=== PATIENT | female | born 1975 | race Caucasian/White ===

== ENCOUNTER 2022-11-13 09:25 | Outpatient (OUT) | payer SELFPAY ==
--- NOTE | 2022-11-13 09:34 | MM_ITS ---
Patient: KIAN CROWLEY Exam Date: 11/13/2022 : 1975 Gender:F Ordering : Non-Staff Physician Admission #: [id number] Family : DR. RASTA BYRD D.O. Order #: [id number] CLICK HERE TO VIEW EXAM RADIOLOGY REPORT PROCEDURE: MM TOMOSYNTHESIS SCREENING BI COMPARISON: MG MAMM SCREEN 3D SALMA CAD, 10/12/2021. MG MAMM SCREEN 3D SALMA CAD, 10/11/2020. MG MAMM SCREEN SALMA W CAD, 06/18/2019. MG MAMM SALMA SCRN W CAD DIG, 06/08/2015. INDICATIONS: Screening Calculator Name NCI Breast Cancer Risk Assessment Tool 5 Year Breast Cancer Risk 0.90% Lifetime Breast Cancer Risk 9.30% Personal Breast Cancer No Personal Ovarian Cancer No Treatments None Family Cancers Father with prostate cancer at age ~57. LOCATION: [facility] BREAST COMPOSITION: Scattered areas fibroglandular density. FINDINGS: DIAGNOSTIC CATEGORY 1--NEGATIVE. RIGHT BREAST: No significant suspicious finding. No significant change has occurred. LEFT BREAST: No significant suspicious finding. No significant change has occurred. RECOMMENDATIONS: ROUTINE MAMMOGRAM AND CLINICAL EVALUATION IN 12 MONTHS. PLEASE NOTE: A NORMAL MAMMOGRAM DOES NOT EXCLUDE THE POSSIBILITY OF BREAST CANCER. A CLINICALLY SUSPICIOUS PALPABLE LUMP SHOULD BE BIOPSIED. Dictated by: Agapito Carl M.D. on 11/14/2022 at 09:15 Approved by: Agapito Carl M.D. on 11/14/2022 at 09:18
== END 2022-11-13 09:26 | disposition home or self-care (01) ==
LOC: MAMMO 09:27
PROVIDERS: PCP Family Medicine
DX: Z12.31 Encounter for screening mammogram for malignant neoplasm of breast (principal); Z80.8 Family history of malignant neoplasm of other organs or systems
CPT/HCPCS: 77063; 77067

== ENCOUNTER 2023-01-15 09:15 | Outpatient (OUT) | payer SELFPAY ==
[2023-01-15 09:38] LABS: Basophils Absolute Auto 0.1 10^3/uL (0.0-0.1); Basophils Percent Auto 1.1 % (0.2-2.0); Eosinophils Absolute Auto 0.2 10^3/uL (0.0-0.7); Eosinophils Percent Auto 2.8 % (0.9-7.0); Hematocrit 35.3 % (36.0-48.0); Immature Granulocytes Abs Auto 0.01 10^3/uL (0.00-0.03); Immature Granulocytes Pct Auto 0.2 % (0.0-0.5); Lymphocytes Absolute Auto 1.6 10^3/uL (1.2-3.8); Lymphocytes Percent Auto 30.3 % (20.5-60.0); Mean Corpuscular Hemoglobin 29.3 pg (26.7-34.0); Mean Corpuscular Volume 86.1 fL (81.0-99.0); Mean Platelet Volume 11.7 fL (9.5-13.5); Monocytes Absolute Auto 0.3 10^3/uL (0.3-0.8); Monocytes Percent Auto 6.2 % (1.7-12.0); Neutrophils Absolute Auto 3.2 10^3/uL (1.4-6.5); Neutrophils Percent Auto 59.4 % (43.0-75.0); Platelet Count 268 10^3/uL (150-450); Red Cell Distribution Width 12.5 % (11.0-15.0); White Blood Count 5.3 10^3/uL (4.0-11.0)
[2023-01-15 10:29] LABS: Alanine Aminotransferase 30 U/L (14-59); Albumin Globulin Ratio 1.3; Alkaline Phosphatase 41 U/L (46-116); Anion Gap 11.3; Aspartate Amino Transferase 16 U/L (15-37); BUN Creatinine Ratio 16.2; Bilirubin Total 0.2 mg/dL (0.2-1.0); Calcium 9.3 mg/dL (8.5-10.1); Carbon Dioxide 28.1 mmol/L (21.0-32.0); Chloride 103 mmol/L (98-107); Chol HDL Ratio 2.6; Cholesterol 170 mg/dL (<=200); Estimated GFR (African America >60 (>=60); Estimated GFR (Non-African Ame >60 (>=60); Globulin 3.1 g/dL; Glucose 95 mg/dL (74-106); HDL Cholesterol 65 mg/dL (40-60); Magnesium 2.2 mg/dL (1.8-2.4); Potassium 4.4 mmol/L (3.5-5.1); Sodium 138 mmol/L (136-145); Total Protein 7.1 g/dL (6.4-8.2); Triglycerides 73 mg/dL (<=150); VLDL CHOLESTEROL 14.6 mg/dL
--- NOTE | 2023-01-15 10:39 | CA_ITS ---
Patient: KIAN CROWLEY Exam Date: 01/15/2023 : 1975 Gender:F Ordering : ANN COWART M.D. Admission #: [id number] Family : LEVI GRAY Order #: [id number] CLICK HERE TO VIEW EXAM ECHOCARDIOGRAM REPORT PROCEDURE: CA ECHO DOPPLER COMPLETE INDICATIONS: PVC's COMPARISON: None. DESCRIPTION: COMPLETE ECHOCARDIOGRAM Real-time transthoracic echocardiography with 2D, M-mode, spectral and color flow Doppler performed. QUALITY: Technical quality was good. LEFT VENTRICLE: Normal chamber size. Normal left ventricular wall thickness. LV EF: Global left ventricular systolic function is normal. Calculated left ventricular ejection fraction is 66%. DIASTOLIC: Normal diastolic function. ATRIAL SEPTUM: Inadequately seen. LEFT ATRIUM: Normal chamber size. RIGHT ATRIUM: Normal chamber size. RIGHT VENTRICLE: Normal chamber size. Normal right ventricular systolic function. TRICUSPID VALVE: Normal mobility and thickness. No stenosis with trivial regurgitation. No evidence of pulmonary hypertension. RVSP 19mmHg MITRAL VALVE: Normal mobility and thickness. No evidence of mitral valve stenosis. There is no mitral annular calcification. No mitral regurgitation. AORTIC VALVE: Normal trileaflet appearance. No visible sclerosis. Normal leaflet mobility. No evidence of aortic valve stenosis. Trivial aortic regurgitation. AORTIC ROOT: Normal diameter and appearance. PULMONIC VALVE: Normal thickness and mobility. No stenosis. Trivial regurgitation. PERICARDIUM: No evidence of pericardial effusion. IVC: Collapses with inspirations. Normal size. CONCLUSION: Global left ventricular systolic function is normal; visually estimated ejection fraction is 60 to 65%. Normal diastolic function. Right ventricle is normal in size and systolic function. No significant valvular abnormalities. Adult Echocardiography Procedure Report Left Ventricle LVEDD (3.7 - 5.6 cm): 3.84 cm LVESD (2.2 - 4.0 cm): 2.76 cm LVIVS thickness (0.6 - 1.2 cm): 0.83 cm LVPW thickness (0.5 - 1.0 cm): 0.79 cm e': 0.15 m/s E - e': 6.05 LVOT Max Gradient: 2.69 mm[Hg] LVOT Area (cm2): 0.82 m/s Peak Velocity (LVOT): 0.82 m/s Mean Velocity (LVOT): 0.55 m/s LVOT Diameter 2.08 cm Left Ventricular Ejection Fraction: 66.20 % Left Atrium LA Volume Index (2D A2C): 28.20 ml/m2 Left Atrium Systolic Dimension: 3.60 cm Mitral Valve MV E to A Ratio: 1.38 Mitral Valve A-Wave Peak Velocity: 0.65 m/s Mitral Valve E-Wave Peak Velocity: 0.90 m/s Right Ventricle RV Internal Diastolic Dimension: 3.44 cm Aorta AO Root Diam: 2.73 cm Ascending Ao Diam: 2.64 cm Aortic Valve AoV Area (Peak Giovanni): 2.28 cm2, 2.28 cm2 AoV Area (VTI): 1.92 cm2, 1.92 cm2 Peak Velocity(Antegrade Flow): 1.23 m/s Peak Gradient(Antegrade Flow): 6.02 mm[Hg] Mean Velocity(Antegrade Flow): 0.85 m/s Mean Gradient(Antegrade Flow): 3.29 mm[Hg] Velocity Time Integral: 29.53 cm Tricuspid Valve Peak Velocity (Regurgitant Flow): 1.93 m/s, 1.95 m/s, 1.97 m/s Pulmonic Valve Mean Gradient: 1.85 mm[Hg], 2.08 mm[Hg] Mean Velocity: 0.64 m/s, 0.68 m/s Peak Velocity: 0.87 m/s Peak Gradient: 2.80 mm[Hg], 3.32 mm[Hg] Right Atrium Right Atrium Systolic Pressure: 40.84 ml, 40.84 ml Dictated by: Alicia Montalvo M.D. on 01/16/2023 at 16:28 Approved by: Alicia Montalvo M.D. on 01/16/2023 at 16:30
== END 2023-01-15 09:16 | disposition home or self-care (01) ==
LOC: LAB 09:16
PROVIDERS: PCP Family Medicine
DX: I49.3 Ventricular premature depolarization (principal)
CPT/HCPCS: 36415; 80053; 80061; 83735; 85025; 93306

== ENCOUNTER 2023-01-17 12:20 | Outpatient (OUT) | payer SELFPAY ==
--- NOTE | 2023-01-17 13:38 | PM.STRESS ---
Stress Test Stress Test Requesting physician: Non-Staff Physician Procedure: Ordering physician: Lala Tapia MD Procedure: Exercise stress test General Information: Reason for Stress Test: PVCs Cardiac History and Risk Factors: Denies personal history. Distant family history of unspecified cardiac disease. Resting 12 - Lead Electrocardiogram: Rate & rhythm: Normal sinus at a rate of 75. [place]: Right deviation T-waves: Normal ST-segments: Normal Stress Test: Protocol: Jossue protocol was followed. Exercise capacity: Excellent exercise capacity. Total exercise time of 10 minutes 1 seconds reached Jossue stage 4 at 4.2MPH, 16% grade, & 13.4 METs. Blood pressure: Initial: 108/64, Maximum: 178/96, Recovery: 118/76 Rate & rhythm: Patient remained in sinus rhythm during the exercise and recovery portions of the study.? The maximum heart rate was 173, which was 100% of the maximum predicted heart rate. ST-segments & T-waves: Within 1 minute into exercise, ST segments in lead III began to have downsloping with lead aVF following. At the end of exercise, there was a maximum 2mm ST segment depression in lead aVF, with downsloping present in III, as well as V5-6. The lateral leads quickly returned to baseline, but downsloping persisted in lead III until 14 minutes into recover. Patient response/symptoms: Patient complained of fatigue, but no chest pain per se. Interpretation: This is an abnormal exercise stress test based on ST segment changes in the inferolateral leads. Taylor Treadmill Score is 0, which is a moderate risk. The patient was asymptomatic regarding the chief complaint. Clinical correlation required.
== END 2023-01-17 12:21 | disposition home or self-care (01) ==
LOC: CARD 12:20
PROVIDERS: PCP Family Medicine
DX: I49.3 Ventricular premature depolarization (principal)
CPT/HCPCS: 93017

== ENCOUNTER 2023-11-21 11:18 | Outpatient (OUT) | payer SELFPAY ==
--- NOTE | 2023-11-21 11:25 | MM_ITS ---
Patient Name: KIAN CROWLEY MR#: [id number] : 1975 Exam Date: 11/21/2023 Ordering Doctor: Non-Staff Physician RADIOLOGY REPORT PROCEDURE: MM TOMOSYNTHESIS SCREENING BI COMPARISON: MM TOMOSYNTHESIS SCREENING BI, 11/13/2022. MG MAMM SCREEN 3D SALMA CAD, 10/12/2021. MG MAMM SCREEN 3D SALMA CAD, 10/11/2020. MG MAMM SALMA SCRN W CAD DIG, 06/08/2015. INDICATIONS: Screening Calculator Name NCI Breast Cancer Risk Assessment Tool 5 Year Breast Cancer Risk 0.90% Lifetime Breast Cancer Risk 9.20% Personal Breast Cancer No Personal Ovarian Cancer No Treatments None Family Cancers Father with prostate cancer at age ~57. LOCATION: [facility] BREAST COMPOSITION: There are scattered areas of fibroglandular density. FINDINGS: DIAGNOSTIC CATEGORY 1--NEGATIVE. RIGHT BREAST: No significant suspicious finding. No significant change has occurred. LEFT BREAST: No significant suspicious finding. No significant change has occurred. RECOMMENDATIONS: ROUTINE MAMMOGRAM AND CLINICAL EVALUATION IN 12 MONTHS. PLEASE NOTE: A NORMAL MAMMOGRAM DOES NOT EXCLUDE THE POSSIBILITY OF BREAST CANCER. A CLINICALLY SUSPICIOUS PALPABLE LUMP SHOULD BE BIOPSIED. Dictated by: Agapito Carl M.D. on 11/22/2023 at 15:30 Approved by: Agapito Carl M.D. on 11/22/2023 at 15:32
== END 2023-11-21 11:19 | disposition home or self-care (01) ==
LOC: MAMMO 11:21
PROVIDERS: PCP Family Medicine
DX: Z12.31 Encounter for screening mammogram for malignant neoplasm of breast (principal); Z80.42 Family history of malignant neoplasm of prostate
CPT/HCPCS: 77063; 77067

== ENCOUNTER 2024-01-22 08:21 | Outpatient (OUT) | payer SELFPAY ==
--- NOTE | 2024-01-22 | MR_ITS ---
[place] [id number] Patient Name: KIAN CROWLEY MRN: [id number] date: 1975 Sex: F Assigned Patient Location: MRI Current Patient Location: MRI Accession/Order Number: [id number] Exam Date: 01/22/2024 08:35 Report Date: 01/22/2024 14:47 At the request of: JACQUELINE HANLEY Procedure: MR cervical spine wo con EXAMINATION: MR cervical spine wo con HISTORY: Cervical Pain (neck) 54.2. Left shoulder, arm pain. TECHNIQUE: Multiplanar, multisequence MRI images of the cervical spine without intravenous contrast. FINDINGS: There is straightening of the cervical spine. No subluxation. Moderate disc space narrowing at C5-C6. Remaining disc space heights preserved. Craniocervical junction is normal. There is no evidence for a Chiari I malformation. The cervical cord appears within normal limits in size and contour. There is no convincing abnormal signal in the cervical spinal cord. C2-C3: No stenosis. C3-C4: Mild bilateral facet arthropathy. No spinal canal or foraminal stenosis. C4-C5: Disc bulge with a superimposed left paracentral disc protrusion, moderate bilateral degenerative facet arthropathy. There is mild central spinal canal stenosis. No foraminal stenosis. C5-C6: Broad-based disc protrusion/osteophyte complex. Mild facet arthropathy and left uncovertebral osteophyte. There is resulting moderate spinal canal and asymmetric moderate to severe left foraminal stenosis. C6-C7: Mild bilateral degenerative facet arthropathy. No stenosis. C7-T1: Mild bilateral degenerative facet arthropathy. No stenosis. MR/MR cervical spine wo con IMPRESSION: 1. At C5-C6, there is a broad-based disc protrusion/osteophyte complex, facet arthropathy, and left uncovertebral osteophytes. There is moderate spinal canal and asymmetric moderate to severe left foraminal stenosis. 2. At C4-C5, there is a left paracentral disc protrusion. There is mild central spinal canal stenosis. Electronically authenticated by: SHIVA WINTER Date: 01/22/2024 14:47
== END 2024-01-22 08:22 | disposition home or self-care (01) ==
LOC: MRI 08:22
PROVIDERS: PCP Family Medicine
DX: M50.221 Other cervical disc displacement at C4-C5 level (principal); M50.222 Other cervical disc displacement at C5-C6 level
CPT/HCPCS: 72141

== ENCOUNTER 2024-06-16 08:24 | Outpatient (OUT) | payer SELFPAY ==
--- OUTSIDE RECORDS SUMMARY | 2024-06-16 08:37 | XMS_ITS | CCD ---
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 Name Role Phone DELFIN, DR KIET Sparks Attending Unavailable WEST, DR YAMILET Edward Consulting Unavailable NADERER, DR KIET Sparks Admitting Unavailable NADERER, DR KIET Sparks Primary Care Unavailable NADERER, DR KEIT Sparks Consulting Unavailable BYRD, RASTA Attending Unavailable BYRD, RASTA Admitting Unavailable BYRD, RASTA Consulting Unavailable NADERER, DR KIET Sparks Primary Care Unavailable BYRD, RASTA Consulting Unavailable BYRD, RASTA Attending Unavailable BYRD, RASTA Admitting Unavailable NADERER, DR KIET Sparks Primary Care Unavailable BYRD, RASTA Attending Unavailable BYRD, RASTA Admitting Unavailable WEST, DR YAMILET Edward Consulting Unavailable NADERER, DR KIET Sparks Primary Care Unavailable BRYD, RASTA Consulting Unavailable NILL, Edgardo R Attending Unavailable DEANDRA FELTON Referring Unavailmeera Ray MD, Bert Walden Primary Care Provider Kiet Lenz Primary Care Provider Kiet Lenz Primary Care Provider MICHAEL PHELPS Referring Unavailable KIET LENZ Primary Care Unavailable KIET LENZ Primary Care Unavailable MICHAEL PHELPS Attending Unavailable BERT RAY Primary Care Unavailable YAMILETKENSPARGEBerny TOMonica Attending Unavailable KONRAD JENSEN Referring Unavailable KIET LENZ Primary Care Unavailable KONRAD JENSEN Attending Unavailable KIET LENZ Primary Care Unavailable ABIGAIL LUEVANO Attending Unavailable MICHAEL PHELPS Referring Unavailable KIET LENZ Primary Care Unavailable Kiet Lenz MD Primary Care Provider [phone] KIET LENZ Referring Unavailable KIET LENZ Primary Care Unavailable BARBER COOK Attending Unavailable KIET LENZ Referring Unavailable KIET LENZ Primary Care Unavailable SHAIKH SLAUGHTER Attending Unavailable JACQUI CLOUD Attending Unavailable KAYLIN CHO Attending UnavailShaikh Ojeda MD Primary Care Provider Kiet Lenz MD Primary Care Provider [phone] Marquis DENTAL SCHEDULER, Kaylin Unavailable [phone] Allergies Allergy Classification Reported Allergen(s) Allergy Type Date of Onset Reaction(s) Facility (18 sources) Sulfonamides (Antibiotic); Translations: [SULFA (SULFONAMIDE ANTIBIOTICS)] Drug Allergy 8 Rash, Unknown [facility] (6 sources) Lamotrigine Allergy to substance 4 Unknown [facility] Healthcare Work Phone: (6 sources) Levetiracetam Allergy to substance 4 Unknown [facility] Healthcare (6 sources) Oxcarbazepine Allergy to substance 4 Unknown [facility] Healthcare (6 sources) Topiramate Allergy to substance 4 Unknown [facility] Healthcare Medications Current Medications Medication Drug Class(es) Dates Sig (Normalized) Sig (Original) acetaminophen 325 mg oral tablet (2 sources) acetaminophen (TYLENOL) 325 mg tablet Take 1,000 mg by mouth every 6 (six) hours as needed for pain. 0 Active cholecalciferol 0.05 mg oral tablet (9 sources) Vitamin D take 1 tablet by mouth in the morning cholecalciferol, vitamin D3, 2,000 units tablet Take 1 tablet (2,000 Units total) by mouth in the morning. 0 Active take 1 tablet by mouth once rolly y cholecalciferol (VITAMIN D3) 50 mcg (2,000 unit) tablet Take 2,000 Units by mouth once daily. 0 Active Comment on above: Take 2,000 Units by mouth once daily. clobetasol propionate 0.0005 mg/mg topical ointment (13 sources) Corticosteroid Start: 12-25-2023 clobetasol (Temovate) 0.05 % ointment Indications: Psoriasis vulgaris (CMS/HCC) Apply to affected areas on elbows, up to twice a day when flared, do not use one the face, groin, or underarms, 30 day supply 45 g 11 12/25/2023 Active Start: 11-06-2023 End: 12-25-2023 clobetasol (Temovate) 0.05 % external solution Indications: Psoriasis vulgaris (CMS/HCC) Apply to affected areas on scalp, up to twice a day when flared, do not use one the face, groin, or underarms, 30 day supply 50 mL 11 12/25/2023 Active cyanocobalamin, vitamin B-12, (VITAMIN B-12 ORAL) (2 sources) take 300 ug by mouth in the morning cyanocobalamin, vitamin B-12, (VITAMIN B-12 ORAL) Take 300 mcg by mouth in the morning. 0 Active estradiol 0.1 mg/ml vaginal cream (2 sources) Estrogen estradioL (ESTRA CE) 0.01 % (0.1 mg/gram) vaginal cream Insert 2 g into the vagina in the morning. 0 Active estradiol 1 mg / progesterone 100 mg oral capsule (8 sources) Progesterone, Estrogen take 1-100 mg by mouth in the morning Estradiol-Progesterone 1-100 MG capsule Take 1 capsule by mouth in the morning. Active estradiol-proges terone 1-100 mg capsule Take by mouth daily. 0 Active hydrocortisone 25 mg/ml topical cream (5 sources) Corticosteroid Start: 12-25-2023 hydrocortisone 2.5 % cream Indications: Psoriasis vulgaris (CMS/HCC) Apply thin layer to affected areas under breasts bid prn for flares, hold if clear 60 g 11 12/25/2023 Active iron carbonyl 15 mg chewable tablet (2 sources) Start: 05-26-2020 iron, carbonyl 15 mg tablet,chewable Chew 15 mg and swallow. 0 05/26/2020 Active iv contrast (will be provided with radiology test) (1 source) Start: 05-29-2022 End: 05-30-2022 inject 1 dose intravenously once iv contrast (will be provided with radiology test) Indications: Tinnitus, unspecified laterality CTA Head/Neck W No IV access, insert saline lock prior to the sedation, infusion, injection for imaging exam. Discontinue saline lock post exam. If Pt. has a central line or IVAD, may access for administration according to line specific nursing protocol. Once exam is complete flush line and de-access according to line specific nursing protocol in the CT contrast administration guidelines link. 1 Each 0 05/29/2022 05/30/2022 Active Comment on above: CTA Head/Neck W No I V access, insert saline lock prior to the sedation, infusion, injection for imaging exam. Discontinue saline lock post exam. If Pt. has a central line or IVAD, may access for administration according to line specific nursing protocol. Once exam is complete flush line and de-access according to line specific nursing protocol in the CT contrast administration guidelines link. Magnesium (2 sources) take 240 mg by mouth in the morning MAGNESIUM ORAL Take 240 mg by mouth in the morning. 0 Active NON FORMULARY (2 sources) NON FORMULARY Me d Name:adrenotone 0 Active predniSONE 10 mg oral tablet (1 source) Start: 02-14-2024 Prednisone Active 10 MG PO As Directed 18 February 14, 2024 12:00am take 3 tablets for 3 days take 2 tablets for 3 days take 1 tablet for 3 days VITAMIN A ORAL (2 sources) take 2400 ug by mouth in the morning VITAMIN A ORAL Take 2,400 mcg by mouth in the morning. 0 Active VITAMIN K2 ORAL (2 sources) take 90 ug by mouth in the morning VITAMIN K2 ORAL Take 90 mcg by mouth in the morning. 0 Active Completed/Discontinued Medications Medication Drug Class(es) Dates Sig (Normalized) Sig (Original) ascorbic acid 1000 mg oral tablet (7 sources) Vitamin C take 4 tablets by mouth once daily Ascorbic Acid 1,000 mg tablet Take 4,000 mg by mouth once daily. 0 Active Comment on above: Take 4,000 mg by gabriel th once daily. compounded progesterone 50 mg capsule (6 sources) compounded progesterone 50 mg capsule 50 mg daily at bedtime. Unsure of dose 0 Active Comment on above: 50 mg daily at bedti me. Unsure of dose loratadine 10 mg oral tablet (6 sources) take 1 tablet by mouth once daily loratadine (CLARITIN) 10 mg tablet Take 10 mg by mouth once daily. 0 Active Comment on above: Take 10 mg by mouth once daily. Omeprazole (2 sources) Proton Pump Inhibitor End: 05-29-2022 omeprazole magnesium (PRILOSEC OTC ORAL) Take by mouth. 0 05/29/2022 Discontinued (Course of therapy completed) omeprazole magne sium (PRILOSEC OTC ORAL) Take by mouth. 0 Active Comment on above: Take by mouth. vitamin a 2.4 mg oral capsule (6 sources) Vitamin A Vitamin A 2,400 mcg capsule Take 8,000 Units by mouth once daily. Unsure of dose 0 Active Comment on above: Take 8,000 Units by mouth once daily. Unsure of dose vitamin k2 0.1 mg oral capsule (6 sources) vitamin K2 100 m cg cap Take by mouth once daily. 0 Active Comment on above: Take by mouth once d aily. Problems Active Problems Problem Classification Problem Date Documented Da te Episodic/Chronic Blindness and vision defects (2 sources) Visual impairment; Translations: [Unspecified visual loss] Onset: 2 04-19-2022 Chronic Cardiac dysrhythmias (10 sources) Multiple premature ventricular complexes; Translations: [Ventricular premature depolarization] Onset: 2 04-19-2022 Chronic Esophageal disorders (8 sources) Gastroesophageal reflux disease; Translations: [Gastro-esophageal reflux disease without esophagitis] Onset: 2 03-17-2022 Chronic Menstrual disorders (4 sources) Excessive and frequent menstruation with irregular cycle; Translations: [EXCESS AND FREQ MEN W/IRREG CYCLE] Onset: 2 Chronic Osteoarthritis (2 sources) Arthritis; Translations: [Unspecified osteoarthritis, unspecified site] Onset: 2 04-19-2022 Chronic Other connective tissue disease (1 source) Muscle pain; Translations: [Myalgia, unspecified site] Onset: 3 10-17-2022 Episodic Other ear and sense organ disorders (3 sources) Tinnitus; Translations: [Tinnitus, unspecified ear] Episodic Other ear and sense organ disorders (2 sources) Tinnitus of vascular origin; Translations: [Pulsatile tinnitus, left ear] Onset: 3 12-05-2022 Episodic Other gastrointestinal disorders (1 source) Clenching teeth; Translations: [Other specified symptoms and signs involving the digestive system and abdomen] Onset: 3 10-17-2022 Episodic Other gastrointestinal disorders (1 source) Fecal smearing; Translations: [Fecal smearing] Onset: 3 Episodic Other inflammatory condition of skin (8 sources) Psoriasis vulgaris; Translations: [Psoriasis vulgaris] Onset: 4 09-12-2023 Chronic Other screening for suspected conditions (not mental disorders or infectious disease) (4 sources) Encounter for screening mammogram for malignant neoplasm of breast; Translations: [ENC SCR MAMMO MALIG NEOPLASM BREAST] Onset: 2 Episodic Other upper respiratory disease (8 sources) Seasonal allergy; Translations: [Other seasonal allergic rhinitis] Onset: 2 04-19-2022 Chronic Ovarian cyst (4 sources) Unspecified ovarian cyst, left side; Translations: [UNSPECIFIED OVARIAN CYST LEFT SIDE] Onset: 2 Episodic Residual codes; unclassified (1 source) Family history of malignant neoplasm of prostate; Translations: [FAMILY HX MALIG NEOPLASM PROSTATE] Onset: 2 Episodic Residual codes; unclassified (1 source) Pain, unspecified; Translations: [Pain, unspecified] Onset: 4 Episodic Spondylosis; intervertebral disc disorders; other back problems (4 sources) Degeneration of cervical intervertebral disc; Translations: [Other cervical disc degeneration at C4-C5 level] 02-14-2024 Chronic Past or Other Problems Problem Classification Problem Date Documented Date Episodic/Chronic Hemorrhoids (2 sources) External hemorrhoids; Translations: [Residual hemorrhoidal skin tags] Onset: 03-17-2022 03-17-2022 Episodic Neoplasms of unspecified nature or uncertain behavior (2 sources) Neoplastic disease; Translations: [Neoplasm of unspecified behavior of bone, soft tissue, and skin] 12-25-2023 Episodic Other and unspecified benign neoplasm (2 sources) Melanocytic nevus of trunk; Translations: [Melanocytic nevi of trunk] 12-25-2023 Episodic Other and unspecified benign neoplasm (2 sources) Skin lesion; Translations: [Hemangioma of skin and subcutaneous tissue] 12-25-2023 Episodic Other connective tissue disease (6 sources) Monoparesis - leg; Translations: [Other symptoms and signs involving the musculoskeletal system] Onset: 09-12-2023 09-12-2023 Episodic Other connective tissue disease (6 sources) Other symptoms and signs involving the musculoskeletal system; Translations: [Other musculoskeletal symptoms referable to limbs] Onset: 09-12-2023 Resolved: 09-12-2023 09-12-2023 Episodic Other ear and sense organ disorders (1 source) Tinnitus, unspecified ear; Translations: [Tinnitus, unspecified laterality] Onset: 06-15-2022 Episodic Other skin disorders (4 sources) Localized swelling, mass and lump, neck; Translations: [LOCALIZED SWELLING MASS AND LUMP NECK] Onset: 07-21-2021 Episodic Other skin disorders (2 sources) Lentiginosis; Translations: [Other melanin hyperpigmentation] 12-25-2023 Episodic Other skin disorders (2 sources) Wrinkled face; Translations: [Other specified disorders of the skin and subcutaneous tissue] 12-25-2023 Episodic Spondylosis; intervertebral disc disorders; other back problems (5 sources) Cervicocranial syndrome; Translations: [Cervicocranial syndrome] Onset: 01-15-2024 12-05-2022 Episodic Results Test Name Value Interpretation Reference Range Facility No Panel Informationon 12-24 Type of biopsy: portillo ential Informed consent: discussed and consent obtained Informed consent comment: The risks and benefits of the biopsy were discussed. Risks include but are not limited to bleeding, infection, scarring, pain, and nerve damage. An opportunity to ask questions prior to the procedure was permitted and all questions were answered. Patient was prepped and draped in usual sterile fashion: area cleansed with alcohol. Anesthesia: the lesion was anesthetized in a standard fashion Anesthetic: 1% lidocaine w/ epinephrine 1-100,000 buffered w/ 8.4% NaHCO3 Instrument used: DermaBlade Hemostasis achieved with: electrodesiccation Outcome: patient tolerated procedure well Outcome comment: The specimen was placed in a prelabeled formalin container to be sent for pathology Post-procedure details: sterile dressing applied and wound care instructions given Post-procedure details comment: Emphasized need to contact clinic for any signs of infection, uncontrollable bleeding, or complications. Dressing type: bandage Additional details: Photo taken Amount of lidocaine used: 1.0 cc [facility] CNTHERAPYon 12-05-2022 CNTHERAPY OT/PT/Speech Visit ( PTVEBE) KIAN OWENS ([id number]) 1975 F Date Time Provider Department 8/1/23 1:45 PM CUATE HAYES PTVEBE Date Time Provider Department [place] 12/05/2022 1:45 PM [id number], TOD PTVRIGOBERTOE [facility] Reason for Visit: PT Eval [747] PT Discharge [752] Primary Visit Diagnosis:Cervicocranial syndrome [M53.0] Other Visit Diagnosis:Pulsatile tinnitus, left ear [H93.A2] Allergies As of Date: 12/05/2022 Noted Allergy Reaction SULFA (SULFONAMIDE ANTIBIOTICS) 12/20/2018 2 - Rash Date Reviewed: 10/20/2022 Reviewed by: Layla Estrella LPN - Fully Assessed Prescriptions as of 12/05/2022 - Vitamin A 2,400 mcg capsule Take 8,000 Units by mouth once daily. Unsure of dose - vitamin K2 100 mcg cap Take by mouth once daily. - loratadine (CLARITIN) 10 mg tablet Take 10 mg by mouth once daily. - compounded progesterone 50 mg capsule 50 mg daily at bedtime. Unsure of dose - cholecalciferol (VITAMIN D3) 50 mcg (2,000 unit) tablet Take 2,000 Units by mouth once daily. - Ascorbic Acid 1,000 mg tablet Take 4,000 mg by mouth once daily. Normal [facility] CNOVon 10-20-2022 CNOV Office Visit (CORSMN ) KIAN OWENS ([id number]) 1975 F Date Time Provider Department 10/20/22 3:00 PM KONRAD JENSEN During your visit today, we recorded the following information about you: Temperature Pulse Blood pressure Weight 97.8 degrees 79/minute 130/70 78.3 kg Height Last Period 1.753 m 10/20/22 Konrad Jensen MD 10/23/2022 5:13 PM Signed COLORECTAL SURGERY New Patient Visit October 20, 2022 Chief Complaint: fecal incontinence History of Present Illness: Kian Owens is a 47 year old year old female had anal complaints in February thought hemorrhoid pain didn't get better. Went to general surgeon. Told needed sphincterotomy told wouldn't have any issues after. H/o gluten intolerance and acid reflux. Had sphincterotomy. Feels gas coming sometimes leaks out without warning. Multiple times a day or not. Rectum not the same shape. Leaking out feces. Soft BM with shape. Uses Tp and wet wipes to clean. 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 Op note: anoscopy with 5-6 mm posterior anal fissure and left lateral internal sphincterotomy was done, incision closed with 2-0 chromic 5 children Last child forceps and episiotomy 13 years ago Shx: no tob Fhx: D prostate cancer, mat cousin Crohn's MGM diverticulitis 5 mm Polyp on colonoscopy- sessile serrated lesion in transverse colon removed with hot snare Tearful PAST MEDICAL HISTORY Diagnosis Date GERD (gastroesophageal reflux disease) History of appendectomy History of cholecystectomy History of right oophorectomy History of tonsillectomy PAST SURGICAL HISTORY Procedure Laterality Date APPENDECTOMY CHOLECYSTECTOMY PAST SURGICAL HISTORY OF Right 2000 right ovarian removal - endometriosis PAST SURGICAL HISTORY OF Lateral internal sphincterotomy TONSILLECTOMY AND ADENOIDECTOMY HX age 14 Current Outpatient Medications Medication Sig Dispense Refill Vitamin A 2,400 mcg capsule Take 8,000 Units by mouth once daily. Unsure of dose vitamin K2 100 mcg cap Take by mouth once daily. compounded progesterone 50 mg capsule 50 mg daily at bedtime. Unsure of dose cholecalciferol (VITAMIN D3) 50 mcg (2,000 unit) tablet Take 2,000 Units by mouth once daily. Ascorbic Acid 1,000 mg tablet Take 4,000 mg by mouth once daily. loratadine (CLARITIN) 10 mg tablet Take 10 mg by mouth once daily. No current facility-administered medications for this visit. ALLERGIES Allergen Reactions Sulfa (Sulfonamide * Rash Review of Systems / PACC screen: Do you have difficulty climbing a full flight of stairs without feeling short of breath? no Do you require oxygen for your breathing or have your gone to an emergency department because of breathing problems? no Are you on dialysis or have you been told that your kidneys do not work well as they should? no Do have an implanted cardiac device (pacemaker, defibrillator etc.) that has not been checked in the last 6 months? no Have you had an organ transplant? no Have you been told that you had excessive bleeding during surgical procedures or do you take blood thinning medications other than aspirin? no Have you ever had a heart attack, heart stents/surgery, valve problems, or other heart problems? yes PVC's Have you had a stroke, seizures, or unexplained loss of consciousness? no Do you have a neurologic condition like Parkinson's disease or multiple sclerosis? no Have you or a blood relative had a life-threatening reaction to anesthesia? no Do you have cirrhosis of the liver or other liver disease? no Have you had a blood clot within the past year? no Do you take insulin or other injections for diabetes? no Do you have sleep apnea or have you been told you may have sleep apnea? no Do you have other implanted devices (deep brain stimulator, spinal cord stimulator, etc.)? no Physical Exam: BP 130/70 Pulse 79 Temp 36.6 ?C (97.8 ?F) (Temporal) Ht 175.3 cm (5' 9 ) Wt 78.3 kg (172 lb 9.6 oz) LMP 10/20/2022 SpO2 96% BMI 25.49 kg/m? General Appearance: Well appearing, alert, in no acute distress, well-hydrated, well nourished. Lungs: Lungs clear to auscultation. No wheezing, rhonchi, rales. Heart: RRR Abdomen: Normal abdominal exam, Abdomen soft, non-tender. Anorectal: Perianal skin is intact. No erythema, induration or excoriation. No fissure, fistula. Has small external hemorrhoids on right. Digital Rectal Exam: Anus: closed Resting tone: NORMAL Squeeze tone: NORMAL Good relaxation Relief Cook present: Yes Anoscopy: The patient was placed in left lateral position. After digital exam with a lubricated finger, the scope was easily inserted. Normal right posterior, right anterior, and left lateral internal hemorrhoids were noted. Otherwise normal mucosa was noted. [place] (more content not included)... Normal [facility] HISTORY PHYSICALon 3 HISTORY PHYSICAL HNO ID: [id number] Author: Konrad Jensen MD Service: ? Author Type: Physician Type: HANDP Filed: 10/23/2022 5:13 PM Note Text: COLORECTAL SURGERY New Patient Visit October 20, 2022 Chief Complaint: fecal incontinence History of Present Illness: Kian Owens is a 47 year old year old female had anal complaints in February thought hemorrhoid pain didn't get better. Went to general surgeon. Told needed sphincterotomy told wouldn't have any issues after. H/o gluten intolerance and acid reflux. Had sphincterotomy. Feels gas coming sometimes leaks out without warning. Multiple times a day or not. Rectum not the same shape. Leaking out feces. Soft BM with shape. Uses Tp and wet wipes to clean. 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 Op note: anoscopy with 5-6 mm posterior anal fissure and left lateral internal sphincterotomy was done, incision closed with 2-0 chromic 5 children Last child forceps and episiotomy 13 years ago Shx: no tob Fhx: D prostate cancer, mat cousin Crohn's MGM diverticulitis 5 mm Polyp on colonoscopy- sessile serrated lesion in transverse colon removed with hot snare Tearful PAST MEDICAL HISTORY Diagnosis Date GERD (gastroesophageal reflux disease) History of appendectomy History of cholecystectomy History of right oophorectomy History of tonsillectomy PAST SURGICAL HISTORY Procedure Laterality Date APPENDECTOMY CHOLECYSTECTOMY PAST SURGICAL HISTORY OF Right 2000 right ovarian removal - endometriosis PAST SURGICAL HISTORY OF Lateral internal sphincterotomy TONSILLECTOMY AND ADENOIDECTOMY HX age 14 Current Outpatient Medications Medication Sig Dispense Refill Vitamin A 2,400 mcg capsule Take 8,000 Units by mouth once daily. Unsure of dose vitamin K2 100 mcg cap Take by mouth once daily. compounded progesterone 50 mg capsule 50 mg daily at bedtime. Unsure of dose cholecalciferol (VITAMIN D3) 50 mcg (2,000 unit) tablet Take 2,000 Units by mouth once daily. Ascorbic Acid 1,000 mg tablet Take 4,000 mg by mouth once daily. loratadine (CLARITIN) 10 mg tablet Take 10 mg by mouth once daily. No current facility-administered medications for this visit. ALLERGIES Allergen Reactions Sulfa (Sulfonamide * Rash Review of Systems / PACC screen: Do you have difficulty climbing a full flight of stairs without feeling short of breath? no Do you require oxygen for your breathing or have your gone to an emergency department because of breathing problems? no Are you on dialysis or have you been told that your kidneys do not work well as they should? no Do have an implanted cardiac device (pacemaker, defibrillator etc.) that has not been checked in the last 6 months? no Have you had an organ transplant? no Have you been told that you had excessive bleeding during surgical procedures or do you take blood thinning medications other than aspirin? no Have you ever had a heart attack, heart stents/surgery, valve problems, or other heart problems? yes PVC's Have you had a stroke, seizures, or unexplained loss of consciousness? no Do you have a neurologic condition like Parkinson's disease or multiple sclerosis? no Have you or a blood relative had a life-threatening reaction to anesthesia? no Do you have cirrhosis of the liver or other liver disease? no Have you had a blood clot within the past year? no Do you take insulin or other injections for diabetes? no Do you have sleep apnea or have you been told you may have sleep apnea? no Do you have other implanted devices (deep brain stimulator, spinal cord stimulator, etc.)? no Physical Exam: BP 130/70 Pulse 79 Temp 36.6 ?C (97.8 ?F) (Temporal) Ht 175.3 cm (5' 9 ) Wt 78.3 kg (172 lb 9.6 oz) LMP 10/20/2022 SpO2 96% BMI 25.49 kg/m? General Appearance: Well appearing, alert, in no acute distress, well-hydrated, well nourished. Lungs: Lungs clear to auscultation. No wheezing, rhonchi, rales. Heart: RRR Abdomen: Normal abdominal exam, Abdomen soft, non-tender. Anorectal: Perianal skin is intact. No erythema, induration or excoriation. No fissure, fistula. Has small external hemorrhoids on right. Digital Rectal Exam: Anus: closed Resting tone: NORMAL Squeeze tone: NORMAL Good relaxation Relief Cook present: Yes Anoscopy: The patient was placed in left lateral position. After digital exam with a lubricated finger, the scope was easily inserted. Normal right posterior, right anterior, and left lateral internal hemorrhoids were noted. Otherwise normal mucosa was noted. Anoscopy completed. 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 Comment on above: Performed By: #### P ROLAC #### [facility] [address] [address] [address] Ana Maria Jones PLT 233 103/ul Normal 150-450 [facility] Comment on above: Performed By: #### P ROLAC #### [facility] [address] [address] [address] Ana Maria Jones RBC 4.06 106/ul Critically low 4.20-5.40 [facility] Comment on above: Performed By: #### P ROLAC #### [facility] [address] [address] [address] Ana Maria Jones WBC 5.0 103/ul Normal 4.0-11.0 [facility] Comment on above: Performed By: #### P ROLAC #### [facility] [address] [address] [address] Ana Maria Jones GLUCOSE BLOODon 11-03-2021 Glucose [Mass/Vol] 103 mg/dL Normal 74-106 [facility] Comment on above: Performed By: #### P REGQNT, GLUC, TSH #### [facility] [address] [address] [address] Ana Maria Jones PREG QUANT HCGon 11-03-2021 HCG QUANT <1 Normal [facility] Comment on above: Performed By: #### P REGQNT, GLUC, TSH #### [facility] [address] [address] [address] Ana Maria Jones HCG RANGE SEE BELOW Normal [facility] Comment on above: Result Comment: 5-50 0-1 WEEK 40-300 1-2 WEEKS 100-1,000 2-3 WEEKS 500-6,000 3-4 WEEKS 5,000-200,000 1-2 MONTHS 10,000-100,000 2-3 MONTHS 3,000-50,000 2ND TRIMESTER 1,000-50,000 3RD TRIMESTER Performed By: #### P REGQNT, GLUC, TSH #### [facility] [address] [address] [address] Ana Maria Jones TSHon 11-03-2021 TSH 2.279 uIU/mL Normal 0.358-3.740 [facility] Comment on above: Performed By: #### P REGQNT, GLUC, TSH #### [facility] [id number] Ana Maria Jones MG MAMM SCREEN 3D SALMA CADon 10-12-2021 MG MAMM SCREEN 3D SALMA CAD Patient: KIAN OWENS Exam Date: 10/12/2021 : 1975 Gender:F Ordering : DR. RASTA BYRD D.O. Admission #: [id number] Family : Order #: [id number] CLICK HERE TO VIEW EXAM RADIOLOGY REPORT PROCEDURE: MAMMOGRAM SCREENING 3D BILATERAL CAD COMPARISON: MG MAMM SCREEN 3D SALMA CAD, 10/11/2020. MG MAMM SCREEN SALMA W CAD, 06/18/2019. INDICATIONS: Screening mammography Calculator Name NCI Breast Cancer Risk Assessment Tool 5 Year Breast Cancer Risk 0.90% Lifetime Breast Cancer Risk 9.60% Personal Breast Cancer No Personal Ovarian Cancer No Treatments None Family Cancers Father with prostate cancer at age 57. LOCATION: The [facility] BREAST COMPOSITION: Scattered areas fibroglandular density. FINDINGS: DIAGNOSTIC CATEGORY 1--NEGATIVE. NO CHANGE FROM COMPARISON ASSESSMENT. Scattered benign-appearing calcifications are present. Scattered benign-appearing lymph nodes are present. RIGHT BREAST: No significant suspicious finding. LEFT BREAST: No significant suspicious finding. RECOMMENDATIONS: ROUTINE MAMMOGRAM AND CLINICAL EVALUATION IN 12 MONTHS. PLEASE NOTE: A NORMAL MAMMOGRAM DOES NOT EXCLUDE THE POSSIBILITY OF BREAST CANCER. A CLINICALLY SUSPICIOUS PALPABLE LUMP SHOULD BE BIOPSIED. Dictated by: Yamilet Parekh MD on 10/12/2021 at 10:19 Approved by: Yamilet Parekh MD on 10/12/2021 at 10:20 Normal [facility] US ST HEAD_NECKon 07-21-[address] HEAD_NECK EXAM: US ST HEAD_NEC K HISTORY: Mass of neck COMPARISON: None. TECHNIQUE: Grayscale FINDINGS: Ultrasound posterior neck in the region of a palpable mass demonstrates normal skin and subcutaneous fat and muscle. No focal ultrasound mass IMPRESSION: No focal ultrasound mass demonstrated Electronically authenticated by: YAMILET PAREKH Date: 2021-07-21 16:13 Normal [facility] Vital Signs Date Time Vital Sign Value Performing Clinician Facility 02-14-2024 10:09-0400 Body height 173.99 cm [facility] 02-14-2024 10:09-0400 Body mass index (BMI) [Ratio] 24.6 kg/m2 [facility] 02-14-2024 10:09-0400 Body weight 74.5 kg [facility] 01-15-2024 15:55-0400 Body height 175.3 cm Kaylin Cho DENTAL SCHEDULER Work Phone: [facility] 01-15-2024 15:55-0400 Body mass index (BMI) [Ratio] 24.22 kg/m2 Kaylin Cho DENTAL SCHEDULER Work Phone: [facility] 01-15-2024 15:55-0400 Body temperature 97.5 [degF] Kaylin Cho DENTAL SCHEDULER Work Phone: [facility] 01-15-2024 15:55-0400 Body weight 74.39 kg Kaylin Cho DENTAL SCHEDULER Work Phone: [facility] 01-15-2024 15:55-0400 Diastolic blood pressure 76 mm[Hg] Kaylin Cho DENTAL SCHEDULER Work Phone: [facility] 01-15-2024 15:55-0400 Heart rate 62 /min Kaylin Cho DENTAL SCHEDULER Work Phone: [facility] Comment on above: 99% O2 01-15-2024 15:55-0400 Systolic blood pressure 126 mm[Hg] Kaylin Cho DENTAL SCHEDULER Work Phone: [facility] 05-18-2023 08:10-0500 Body height 175.3 cm Barber Cook MD Work Phone: [facility] 05-18-2023 08:10-0500 Body mass index (BMI) [Ratio] 26.4 kg/m2 Barber Cook MD Work Phone: [facility] 05-18-2023 08:10-0500 Body weight 81.1 kg Barber Cook MD Work Phone: [facility] 05-18-2023 08:10-0500 Diastolic blood pressure 82 mm[Hg] Barber Cook MD Work Phone[facility] [employer] [facility] 05-18-2023 08:10-0500 Heart rate 84 /min Barber Cook MD Work Phone: [facility] 05-18-2023 08:10-0500 SaO2% (BldA) [Mass fraction] 98 % Barber Cook MD Work Phone: [facility] 05-18-2023 08:10-0500 Systolic blood pressure 110 mm[Hg] Barber Cook MD Work Phone: [facility] 05-29-2022 14:07-0500 Diastolic blood pressure 77 mm[Hg] Michael Phelps MD Work Phone: [facility] 05-29-2022 14:07-0500 Systolic blood pressure 118 mm[Hg] Michael Phelps MD Work Phone: [facility] 05-29-2022 13:47-0500 Body height 175.3 cm Michael Phelps MD Work Phone: [facility] 05-29-2022 13:47-0500 Body temperature 98.6 [degF] Michael Phelps MD Work Phone: [facility] 05-29-2022 13:47-0500 Body weight 79.83 kg Michael Phelps MD Work Phone: [facility] 05-29-2022 13:47-0500 Heart rate 78 /min Michael Phelps MD Work Phone: [facility] 05-29-2022 13:47-0500 SaO2% (BldA) [Mass fraction] 98 % Michael Phelps MD Work Phone: [facility] Encounters Encounter Date Encounter Type Care Provider Facility Start: 02-14-2024 End: 02-14-2024 [facility] Work Phone: Start: 02-14-2024 End: 02-14-2024 Patient encounter procedure [facility] Work Phone: Start: 01-15-2024 End: 01-15-2024 Office outpatient visit 15 minutes Kaylin Cho DENTAL SCHEDULER Work Phone: [facility] Comment on above: Cervical pain (neck) (Primary Dx) Start: 01-15-2024 End: 01-15-2024 ambulatory KAYLIN CHO Not Available Start: 01-15-2024 End: 01-15-2024 Bamboo flowsheet Kaylin Waddellzpatrick DENTAL SCHEDULER Work Phone: [facility] Start: 01-15-2024 End: 01-15-2024 Bamboo flowsheet Kaylin Cho DENTAL SCHEDULER Work Phone: [facility] Start: 12-25-2023 End: 12-25-2023 Bamboo flowsheet Jacqui Cloud MD Work Phone: [facility] Start: 12-25-2023 End: 12-25-2023 Bamlamineo flowscortney Cloud MD Work Phone: [facility] Start: 12-25-2023 End: 12-25-2023 ambulatory JACQUI CLOUD Not Available Start: 12-25-2023 End: 12-25-2023 Office outpatient visit 15 minutes Jacqui Cloud MD Work Phone: [facility] Comment on above: Psoriasis vulgaris ( CMS/HCC) (Primary Dx); Melanocytic nevus of trunk; Angioma of skin; Lentigines; Facial rhytids; Neoplasm of unspecified behavior of bone, soft tissue, and skin Start: 09-12-2023 End: 09-12-2023 ambulatory SHAIKH KASANDRA Not Available Start: 05-18-2023 End: 05-18-2023 ambulatory BARBER COOK [facility] Start: 05-18-2023 End: 05-18-2023 Office outpatient visit 10 minutes Barber Cook MD Work Phone: [facility] Comment on above: PVC (premature ventr icular contraction) (Primary Dx) Start: 05-17-2023 Telephone encounter [facility] Start: 05-17-2023 ambulatory KIET LENZ [facility] Start: 12-05-2022 End: 12-05-2022 ambulatory TOD KOKENSPARGER Facility:[facility] Start: 12-05-2022 End: 12-05-2022 ambulatory Tod Kokensparger PT Work Phone: [facility] Comment on above: Cervicocranial syndr ome (Primary Dx); Pulsatile tinnitus, left ear Start: 10-20-2022 End: 10-21-2022 ambulatory KONRAD JENSEN Facility:[facility] Start: 10-17-2022 End: 10-17-2022 ambulatory ABIGAIL LUEVANO Facility:[facility] Start: 07-27-2022 ambulatory Michael Anderson Work Phone: Vascular Medicine Comment on above: Pulsatile Tinnitus Start: 07-19-2022 ambulatory Michael Anderson Work Phone: [facility] Start: 07-19-2022 Follow-up encounter Michael Edge ra, MD Work Phone: [facility] Comment on above: Follow up Start: 06-21-2022 ambulatory Michael Anderson Work Phone: [facility] Comment on above: Results Start: 06-21-2022 E-mail encounter babita m caregiver Michael Phelps MD Work Phone: [facility] Start: 06-15-2022 End: 06-15-2022 ambulatory MICHAEL PHELPS Facility:[facility] Start: 06-15-2022 End: 06-15-2022 Subsequent hospital visit by physician [facility] Gabriela Work Phone: Radiology Comment on above: Tinnitus, unspecifie d laterality [H93.19] Start: 05-29-2022 End: 05-30-2022 ambulatory KIET LENZ Facility:[facility] Start: 05-29-2022 End: 05-29-2022 Patient encounter procedure Michael Phelps MD Work Phone: [facility] Medicine Comment on above: Tinnitus, unspecifie d laterality (Primary Dx) Start: 05-17-2022 End: 05-17-2022 ambulatory Anai Hopkins RN [facility] Start: 05-17-2022 Patient encounter procedure Anai Hopkins RN NURSE ACTIVITY AIDE Comment on above: Referral Request Start: 03-14-2022 ambulatory Edgardo Arrieta NERIS Facility :[facility] Start: 12-14-2021 End: 12-15-[address] [facility] Facility: Start: 11-03-2021 End: 11-04-[address] [facility] Facility: Start: 10-12-2021 End: [address] [facility] Facility: Start: 07-21-2021 End: 07-22-[address] KIET LENZ Facility: Procedures Date Procedure Procedure Detail Performing Clinician Start: 12-25-2023 SKIN / NAIL BIOPSY Greg Cloud MD Work Phone: Start: 11-22-2023 Mammography Jacqui rajput MD Work Phone: Start: 05-18-2023 Follow-up visit Follow-up BARBER COOK Start: 06-15-2022 Ct angiography head w/contrast/noncontrast Michael Phelps MD Work Phone: Start: 06-15-2022 Ct angiography neck w/contrast/noncontrast Michael Phelps MD Work Phone: Start: 03-20-2022 Colonoscopy Anai Brody in RN Start: 08-03-2016 Microscopic observat ion [Identifier] in Cervix by Cyto stain Kate Ramos CMA Plan of Treatment Date Care Activity Detail Author Start: 03-20-2032 Screening for malignant neoplasm of colon [facility] Start: 03-20-2027 Screening for malignant neoplasm of colon Colonoscopy [facility] Start: 12-25-2024 End: 12-25-2024 Patient encounter procedure 12/25/2024 1:30 PM EDT Office Visit [facility] [address] [place] [address] Jacqui Cloud MD [address] [place] [address] [facility] Start: 11-21-2024 Screening for malignant neoplasm of breast Mammogram [facility] Start: 05-18-2024 Adult BMI Screening Adult BMI Screening [facility] Start: 03-13-2024 Adult BMI Screening Adult BMI Screening [facility] Start: 03-13-2024 Tobacco Screening Tobacco Screening [facility] Start: 01-15-2024 End: 01-15-2024 Patient encounter procedure 01/15/2024 3:30 PM EDT Office Visit [facility] [address] [place] [phone] Kaylin Cho NP [address] [place] [address] Arrived [facility] Comment on above: Arrived Start: 01-15-2024 End: 01-14-2025 MR Cervical spine WO contrast MR cervical spine wo contrast Imaging Routine Cervical pain (neck) Expected: 01/15/2024, Expires: 01/14/2025 [facility] Work Phone: Comment on above: Expected: 01/15/2024, Expires: Start: 01-06-2024 Influenza vaccination Influenza Vaccine (#1) [facility] Start: 05-18-2023 End: 05-18-2023 Patient encounter procedure 05/18/2023 8:30 AM EST Office Visit [facility] [address] [place] [phone] Barber Cook MD [address] [place] [address] [facility] Start: 03-20-2023 Colonoscopy COLONOSCOPY [facility] Start: 03-20-2023 COLORECTAL CANCER SCREENING COLORECTAL CANCER SCREENING [facility] Start: 01-05-2023 Influenza vaccination [facility] Start: 05-07-2022 DEPRESSION ASSESSMENT DEPRESSION ASSESSMENT [facility] Start: 01-05-2022 Influenza vaccination INFLUENZA (#1) [facility] Start: 10-14-2019 COLOGUARD (FIT-DNA) COLOGUARD (FIT-DNA) [facility] Start: 10-14-[address] COLONOGRAPHY [facility] Start: 10-14-2019 DIABETES SCREEN DIABETES SCREEN [facility] Start: 10-14-2019 FECAL OCCULT BLOOD FECAL OCCULT BLOOD [facility] Start: 10-14-2019 LIPID SCREEN LIPID SCREEN [facility] Start: 10-14-2019 SIGMOIDOSCOPY SIGMOIDOSCOPY [facility] Start: 08-04-2019 Screening for malignant neoplasm of cervix Pap Smear [facility] Start: 2014 Mammography MAMMOGRAM [facility] Start: 2004 HPV TESTING HPV TESTING [facility] Start: 2004 Screening for malignant neoplasm of cervix [facility] Start: 10-14-1995 PAP TESTING PAP TESTING [facility] Start: 10-14-1995 Screening for malignant neoplasm of cervix Pap Smear [facility] Start: 1993 DTaP,Tdap and Td Vaccines (1 - Tdap) DTaP,Tdap and Td Vaccines (1 - Tdap) [facility] Start: 1993 Urine microalbumin profile DTAP,TDAP,TD (1 - Tdap) [facility] Start: 1992 Adult BMI Follow Up Plan Adult BMI Follow Up Plan [facility] Start: 1992 HEPATITIS C SCREENING HEPATITIS C SCREENING [facility] Start: 1992 HIV SCREENING HIV SCREENING [facility] Start: 1986 Depression Screening Depression Screening [facility] Start: 04-14-1975 COVID-19 VACCINE (#1) COVID-19 VACCINE (#1) [facility] Start: 1975 HEPATITIS B (1 of 3 - 3-dose series) HEPATITIS B (1 of 3 - 3-dose series) [facility] Start: 1975 Screening for malignant neoplasm of colon [facility] End: 06-28-2023 CTA HEAD W IVCON CTA HEAD W IVCON Radiology Routine Tinnitus, unspecified laterality 1 Occurrences starting 05/29/2022 until 06/28/2023 [facility] Work Phone: Comment on above: 1 Occurrences starting 05/29/2022 until 06/28/2023 End: 06-28-2023 CTA NECK W IVCON CTA NECK W IVCON Radiology Routine Tinnitus, unspecified laterality 1 Occurrences starting 05/29/2022 until 06/28/2023 [facility] Work Phone: Comment on above: 1 Occurrences starting 05/29/2022 until 06/28/2023 Dermatopathology exam Dermatopat hology exam Pathology and Cytology Timed Neoplasm of unspecified behavior of bone, soft tissue, and skin Release Upon Ordering for 1 Occurrences starting 12/25/2023 [facility] Work Phone: Comment on above: Release Upon Ordering for 1 Occurrences starting 12/25/2023 [facility] Immunizations Immunization Date Immunization Notes Care Provider [facility] 02-26-2018 influenza, injectabl e, quadrivalent, preservative free Jacqui Cloud MD Work Phone: [facility] 02-26-2018 influenza virus vaccine, unspecified formulation Kate Ramos [facility] 02-20-2012 influenza, seasonal, injectable, preservative free Jacqui Cloud MD Work Phone: [facility] Payers Date Payer Category Payer Self-pay 2019 Unknown [id number] 1975 Unknown [id number] [id number] 1975 Unknown [id number] [id number] [id number] 1975 Unknown [id number] 2.16.84 [id number] 1975 Unknown [id number] 2.16.84 [id number] 1975 Unknown [id number] 2.16.8 [id number] 1975 Unknown [id number] 2.16.84 [id number] 1975 Unknown [id number] [id number] [id number] 1960 Self-pay [id number] Social History Date Type Detail Facility Start: 12-20-2018 End: 09-12-2023 Tobacco smoking status NHIS Never smoked tobacco [facility] Start: 12-20-2018 End: 09-12-2023 Tobacco use and exposure Smokeless tobacco non-user [facility] Start: 1975 Sex Assigned At Not on file [facility] Start: 10-20-2022 End: 05-18-2023 Alcohol intake Current drinker of alcohol (finding) [facility] Start: 10-20-2022 End: 01-15-2024 History of Social function [facility] Start: 10-20-2022 End: 01-15-2024 Tobacco use panel [facility] Adult Depression Screening Assessment 0 [facility] Start: 10-20-2022 Alcohol Comment once a year [facility] Start: 03-13-2023 Alcohol Comment Probably 2-3 d rinks per year [facility] Start: 1975 Sex Assigned At Female F [facility] Start: 09-12-2023 End: 01-15-2024 Alcoholic beverage intake Lifetime non-drinker (finding) [facility] NEGATED: Highlighted rowStart: NINF History of tobacco use Passive smoker [facility] Clinical Notes 05-17-2022 to 01-15-2024 Kaylin Cho NP - 01/15/2024 4:35 PM EDTBperry Cho NP - 01/15/2024 3:30 PM EDTPatient InstructionsEmpan Cloud MD - 12/25/2023 1:35 PM EDT Note Date & Type Note Facility 01-15-2024 History of Present illness Narrative Associated Problem(s): Cervical pain (neck) sudden onset shoulder and cervical neck pain X6 weeks Pain was constant X2 weeks , increased positionally. Pain is worse when sitting upright in chair position. Pain subsides when arm is adducted behind back. Denies pain with lifting arms above head. Progressed down left side of arm, radiating to fingers. Tingling onset 2 weeks ago. Severe constant Pain has subsided mostly, continuous tingling remains. MRI cervical spine ordered. Declines muscle relaxant or pharmacological treatment at this time. Images from the original note were not included. Subjective Patient ID: Kian Owens is a 48 y.o. female who presents for Arm Pain. HPI Sudden onset shoulder and cervical neck pain X6 weeks Pain is constant, increases positionally. Pain is worse when sitting upright in chair position. Pain subsides when arm is adducted behind back. Denies pain with lifting arms above head. Progressed down left side of arm, radiating to fingers. Tingling onset 2 weeks ago. Pain has since subsided mostly, but the tingling is constant. Pain does not radiate to lower back, legs, or feet. Denies recent injury or trauma Saw chiropractor X3 visits. Ongoing for 6 weeks. TX: Ibuprofen/tylenol Minimal relief. Had massage X2 Pt is requesting MRI be done. Declines muscle relaxant therapy at this time. Review of Systems Constitutional: Negative for activity change, appetite change, chills, diaphoresis, fatigue, fever and unexpected weight change. HENT: Negative for congestion, ear pain, rhinorrhea, sinus pressure, sinus pain, sneezing, sore throat, trouble swallowing and voice change. Eyes: Negative for visual disturbance. Respiratory: Negative for cough, chest tightness, shortness of breath and wheezing. Cardiovascular: Negative for chest pain, palpitations and leg swelling. Gastrointestinal: Negative for abdominal distention, abdominal pain, blood in stool, constipation, diarrhea and vomiting. Genitourinary: Negative for decreased urine volume, dysuria, flank pain, frequency, hematuria and urgency. Musculoskeletal: Positive for myalgias and neck pain. Negative for arthralgias, gait problem and joint swelling. Tingling to L arm Skin: Negative for rash. Neurological: Negative for dizziness, tremors, syncope, weakness, light-headedness and headaches. Psychiatric/Behavioral: Negative for decreased concentration and suicidal ideas. The patient is not nervous/anxious. Hematological: Does not bruise/bleed easily. Endocrine: Negative for cold intolerance, heat intolerance, polydipsia, polyphagia and polyuria. Objective Physical Exam Vitals reviewed. Constitutional: Appearance: Normal appearance. HENT: Head: Normocephalic and atraumatic. Right Ear: Tympanic membrane normal. Left Ear: Tympanic membrane normal. Nose: Nose normal. Mouth/Throat: Mouth: Mucous membranes are moist. Pharynx: Oropharynx is clear. Eyes: Pupils: Pupils are equal, round, and reactive to light. Cardiovascular: Rate and Rhythm: Normal rate and regular rhythm. Pulses: Normal pulses. Heart sounds: Normal heart sounds. Pulmonary: Effort: Pulmonary effort is normal. Breath sounds: Normal breath sounds. Abdominal: General: Abdomen is flat. Bowel sounds are normal. Palpations: Abdomen is soft. Musculoskeletal: General: Normal range of motion. Cervical back: Normal range of motion. Skin: General: Skin is warm and dry. Capillary Refill: Capillary refill takes less than 2 seconds. Neurological: General: No focal deficit present. Mental Status: She is alert and oriented to person, place, and time. Psychiatric: Mood and Affect: Mood normal. Behavior: Behavior normal. Assessment/Plan Problem List Items Addressed This Visit Cervical pain (neck) - Primary sudden onset shoulder and cervical neck pain X6 weeks Pain was constant X2 weeks , increased positionally. Pain is worse when sitting upright in chair position. Pain subsides when arm is adducted behind back. Denies pain with lifting arms above head. Progressed down left side of arm, radiating to fingers. Tingling onset 2 weeks ago. Severe constant Pain has subsided mostly, continuous tingling remains. MRI cervical spine ordered. Declines muscle relaxant or pharmacological treatment at this time. documented in this encounter [facility] 01-15-2024 Instructions Kaylin Cho NP - 01/15/2024 3:30 PM EDT MRI order sent to [facility]; We will call you with results. documented in this encounter [facility] 12-25-2023 History of Present illness Narrative Images from the original note were not included. Skin Check Location: Patient requests a full body skin examination Dermatologic history: history of atypical mole(s), no history of skin cancer Last visit: 09/2022 Subjective Kian Owens is a 48 y.o. female who presents for the following: Psoriasis biologic follow up Location: scalp, ears, elbows, inframammary areas Duration: years Associated Factors: itchy, scaly Joint pain present: No Current treatment: clobetasol solution, clobetasol ointment, HC 2.5% cream Lesions: Location: left knee Duration: months Quality: denies pain, denies itch Associated symptoms: enlarged Treatments: none Established patient All pertinent medical history, medications, and allergies were reviewed. General Exam: alert , oriented to person, place, and time , normal affect, well appearing Unaccompanied Scalp, Examined , exam limited by hair Right leg Examined Head, Face Examined Left leg Examined Neck Examined Right foot Examined Chest Examined Left foot Examined Back Examined Buttocks Examined Abdomen Examined Digits,nails: Examined Right arm Examined Patient wearing nail turkmen, Denies dark streaks under finger nails, Denies dark streaks on toenails Left arm Examined Lymphatics: Not examined Hands Examined 1. Psoriasis vulgaris (CMS/HCC) Right Occipital Scalp Thin erythematous plaques. Stable with treatment. The patient was informed that psoriasis is a chronic condition that can be controlled but not cured. Continue clobetasol solution every day to scalp, hold if clear. Continue clobetasol ointment bid prn to elbows, hold if clear. Continue HC 2.5% cream bid prn to inframammary area, hold if clear. Instructed on appropriate use of topical steroids, discussed risk of thinning/lightening of the skin with prolonged use. Instructed to contact office if psoriasis worsens or fails to improve despite treatment. clobetasol (Temovate) 0.05 % ointment - Right Occipital Scalp Apply to affected areas on elbows, up to twice a day when flared, do not use one the face, groin, or underarms, 30 day supply hydrocortisone 2.5 % cream - Right Occipital Scalp Apply thin layer to affected areas under breasts bid prn for flares, hold if clear Related Medications clobetasol (Temovate) 0.05 % external solution Apply to affected areas on scalp, up to twice a day when flared, do not use one the face, groin, or underarms, 30 day supply 2. Melanocytic nevus of trunk Torso - Posterior (Back) Scattered benign appearing, regular brown to light brown melanocytic papules and macules with similar morphology Counseled regarding these benign growths. Rarely, a nevus can develop into malignant melanoma, so any changing nevi should be promptly re-evaluated. 3. Angioma of skin Chest (Upper Torso, Anterior) Scattered ocampo-red papule(s). The patient was informed that angiomas are benign growths on the the skin. No treatment is necessary. 4. Lentigines Head - Anterior (Face) Scattered chester macules in sun-exposed areas. The patient was informed that lentigines are benign pigmented lesions that occur on sun-exposed and sun-damaged skin. No treatment is necessary. Recommended regular use of broad spectrum sunscreen SPF 30 or higher 5. Facial rhytids Head - Anterior (Face) Discussed seeing Dr. Espino for consultation. 6. Neoplasm of unspecified behavior of bone, soft tissue, and skin Left Malar Cheek Irregularly pigmented papule Lesion biopsy Type of biopsy: tangential Informed consent: discussed and consent obtained Informed consent comment: The risks and benefits of the biopsy were discussed. Risks include but are not limited to bleeding, infection, scarring, pain, and nerve damage. An opportunity to ask questions prior to the procedure was permitted and all questions were answered. Patient was prepped and draped in usual sterile fashion: area cleansed with alcohol. Anesthesia: the lesion was anesthetized in a standard fashion Anesthetic: 1% lidocaine w/ epinephrine 1-100,000 buffered w/ 8.4% NaHCO3 Instrument used: DermaBlade Hemostasis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 PATIENT GENDER DATA: Female. status: : No status: NO. PATIENT RELEVANT IMPLANT DATA REVIEWED: Not Applicable ALLERGIES: Reviewed and unchanged CONTRAST ALLERGY: NO. EXAM: CT -CONTRAST INDUCED NEPHROPATHY RISK FACTORS: Not applicable CREATININE: No results found for: CREAT, EGFROTH, EGFRAA P.O.C.T. RESULTS: N/A June 15, 2022 TREATMENT: N/A PERIPHERAL IV DATA: Ambulatory: A peripheral IV was started in the Left antecubital site with a Angio cath: 20 gauge. RADIOLOGY DEPARTMENT: CT; Exam(s) Completed: CTA Brain and CTA Neck SIGNATURE: DILAN Vickers PATIENT NAME: Kina Owens DATE: June 15, 2022 TIME: 12:53 PM documented in this encounter [facility] 05-29-2022 Note HNO ID: [id number] Author: Michael Phelps MD Service: ? Author Type: Physician Type: Progress Notes Filed: 05/29/2022 3:05 PM Note Text: [facility] [place] [facility] Department of Cardiovascular Medicine SECTION OF VASCULAR MEDICINE OUTPATIENT VISIT DATE May 29, 2022 OUTPATIENT VISIT TYPE CONSULTATION Consult regarding: Pulsatile Tinnitus Consult requested by: My final recommendations will be communicated back to the requesting physician by way of the shared medical record or by letter. Primary care physician: Bert Ray MD Historian: Patient History of present illness Ms.Melinda Armando Owens is a 46 year old female with PMH of pre menopause who presents today for tinnitus. Pleasant 46-year-old female presenting today for longstanding history of mainly left-sided pulsatile tinnitus. Patient states about a decade ago she was leaning on her right side laying her head on her right hand reading a book. The notebook. Became emotional and started crying during the sad part of the book. Shortly thereafter she began to experience left-sided pulsatile tinnitus. Has essentially been persistent ever since. Only on the left. Worse at night. Worse during times of stress. Is present 99% of the time. She notes that whenever she sleeps sitting up she has some relief of her symptoms. She was previously seen by the vestibular clinic. No cause was found. She has been living with it ever since. Quite bothersome to her. Makes it difficult to sleep. The more she thinks about of the louder it gets. Is a big nuisance at night. She does not have high blood pressure. She became premenopausal recently. Several symptoms including hot flashes. She is now on progestin therapy. She notes that since starting the progestin therapy the pulsatile tinnitus can get worse. She has not seen [facility] tinnitus clinic yet Allergies: is allergic to sulfa (sulfonamide antibiotics). Medications: cholecalciferol (VITAMIN D3) 50 mcg (2,000 unit) tablet Take 2,000 Units by mouth once daily. Ascorbic Acid 1,000 mg tablet Take 4,000 mg by mouth once daily. Vitamin A 2,400 mcg capsule Take 8,000 Units by mouth once daily. Unsure of dose vitamin K2 100 mcg cap Take by mouth once daily. loratadine (CLARITIN) 10 mg tablet Take 10 mg by mouth once daily. compounded progesterone 50 mg capsule 50 mg daily at bedtime. Unsure of dose iv contrast (will be provided with radiology test) CTA Head/Neck W No IV access, insert saline lock prior to the sedation, infusion, injection for imaging exam. Discontinue saline lock post exam. If Pt. has a central line or IVAD, may access for administration according to line specific nursing protocol. Once exam is complete flush line and de-access according to line specific nursing protocol in the CT contrast administration guidelines link. Past medical history: has a past medical history of GERD (gastroesophageal reflux disease). Past surgical history: has a past surgical history that includes past surgical history of (Right, 1999); tonsillectomy and adenoidectomy hx; cholecystectomy; and appendectomy. Family history: family history is not on file. Social history: reports that she has never smoked. She has never used smokeless tobacco. Review of systems: General Fever or chills - No Night sweats - No Change in weight - YES has gained 20 lb in last couple years Lumps in groin, underarms - No Neurological Headaches - No Seizures - No Passing out - No Dizziness/light headedness - No Numbness, tingling, pins or needles - No Weakness in arms or legs - No Head, eyes, ears, nose and throat Changes in hearing - YES had tinnitis for last 10 years Changes in vision - No Nose bleeds - No Difficulty or pain with swallowing - No Cardiovascular Chest pain or pressure - No Palpitations - No Irregular heartbeat - YES HAS PVC/S Shortness of breath - No Respiratory Cough - No Wheezing - No Shortness of breath at rest - No Shortness of breath with exertion - No Coughing up blood - No Sleep apnea - No Gastrointestinal Abdominal pain - No Nausea/vomiting - No Diarrhea/Constipation - No Stomach pain after eating - No Blood in stool - No Black stool - No Genitourinary Pain with urination - No Blood in urine - No Gynecology - YES LONG PERIODS Abnormal vaginal bleeding - YES History of loss - YES ONE Extremity Bulging veins - No Swelling in arms or legs - No Redness of extremities - No Pain with walking - No Color change of hands/feet/digits - No Musculoskeletal Joint pain - No Joint swelling - No Back pain - No Muscle pain or ache - YES SHOULDERS Skin Rash - YES PSORIASIS Lesions - No Slow healing sores - No Tight or thickened skin - No Hematology Low blood counts - No Easy bruising - No Blood transfusions - No Psychology Depressed mood - No Anxiety or history (more content not included)... [facility] 05-29-2022 History of Present illness Narrative Images from the original note were not included. [facility] [place] [facility] Department of Cardiovascular Medicine SECTION OF VASCULAR MEDICINE OUTPATIENT VISIT DATE May 29, 2022 OUTPATIENT VISIT TYPE CONSULTATION Consult regarding: Pulsatile Tinnitus Consult requested by: My final recommendations will be communicated back to the requesting physician by way of the shared medical record or by letter. Primary care physician: Bert Ray MD Historian: Patient History of present illness Ms.Melinda Armando Owens is a 46 year old female with PMH of pre menopause who presents today for tinnitus. Pleasant 46-year-old female presenting today for longstanding history of mainly left-sided pulsatile tinnitus. Patient states about a decade ago she was leaning on her right side laying her head on her right hand reading a book. The notebook. Became emotional and started crying during the sad part of the book. Shortly thereafter she began to experience left-sided pulsatile tinnitus. Has essentially been persistent ever since. Only on the left. Worse at night. Worse during times of stress. Is present 99% of the time. She notes that whenever she sleeps sitting up she has some relief of her symptoms. She was previously seen by the vestibular clinic. No cause was found. She has been living with it ever since. Quite bothersome to her. Makes it difficult to sleep. The more she thinks about of the louder it gets. Is a big nuisance at night. She does not have high blood pressure. She became premenopausal recently. Several symptoms including hot flashes. She is now on progestin therapy. She notes that since starting the progestin therapy the pulsatile tinnitus can get worse. She has not seen [facility] tinnitus clinic yet Allergies: is allergic to sulfa (sulfonamide antibiotics). Medications: cholecalciferol (VITAMIN D3) 50 mcg (2,000 unit) tablet Take 2,000 Units by mouth once daily. Ascorbic Acid 1,000 mg tablet Take 4,000 mg by mouth once daily. Vitamin A 2,400 mcg capsule Take 8,000 Units by mouth once daily. Unsure of dose vitamin K2 100 mcg cap Take by mouth once daily. loratadine (CLARITIN) 10 mg tablet Take 10 mg by mouth once daily. compounded progesterone 50 mg capsule 50 mg daily at bedtime. Unsure of dose iv contrast (will be provided with radiology test) CTA Head/Neck W No IV access, insert saline lock prior to the sedation, infusion, injection for imaging exam. Discontinue saline lock post exam. If Pt. has a central line or IVAD, may access for administration according to line specific nursing protocol. Once exam is complete flush line and de-access according to line specific nursing protocol in the CT contrast administration guidelines link. Past medical history: has a past medical history of GERD (gastroesophageal reflux disease). Past surgical history: has a past surgical history that includes past surgical history of (Right, 1999); tonsillectomy and adenoidectomy hx; cholecystectomy; and appendectomy. Family history: family history is not on file. Social history: reports that she has never smoked. She has never used smokeless tobacco. Review of systems: General Fever or chills - No Night sweats - No Change in weight - YES has gained 20 lb in last couple years Lumps in groin, underarms - No Neurological Headaches - No Seizures - No Passing out - No Dizziness/light headedness - No Numbness, tingling, pins or needles - No Weakness in arms or legs - No Head, eyes, ears, nose and throat Changes in hearing - YES had tinnitis for last 10 years Changes in vision - No Nose bleeds - No Difficulty or pain with swallowing - No Cardiovascular Chest pain or pressure - No Palpitations - No Irregular heartbeat - YES HAS PVC/S Shortness of breath - No Respiratory Cough - No Wheezing - No Shortness of breath at rest - No Shortness of breath with exertion - No Coughing up blood - No Sleep apnea - No Gastrointestinal Abdominal pain - No Nausea/vomiting - No Diarrhea/Constipation - No Stomach pain after eating - No Blood in stool - No Black stool - No Genitourinary Pain with urination - No Blood in urine - No Gynecology - YES LONG PERIODS Abnormal vaginal bleeding - YES History of loss - YES ONE Extremity Bulging veins - No Swelling in arms or legs - No Redness of extremities - No Pain with walking - No Color change of hands/feet/digits - No Musculoskeletal Joint pain - No Joint swelling - No Back pain - No Muscle pain or ache - YES SHOULDERS Skin Rash - YES PSORIASIS Lesions - No Slow healing sores - No Tight or thickened skin - No Hematology Low blood counts - No Easy bruising - No Blood transfusions - No Psychology Depressed mood - No Anxiety or history of panic attacks - No History of recreational drug use - No Cancer screening (up to date?): Colonoscopy: YES 2021 Pap smear: YES Mammogram: YES Prostate: N/A Smoking history: -Current or past smoker? No -If current smoker, are you interested in help with quitting? No Physical exam Vitals: BP 118/77 (BP Site: Left Arm, BP Position: Sitting, BP Cuff Size: Regular Adult) Pulse 78 Temp 37 C (98.6 F) (Oral) Ht 175.3 cm (5' 9 ) Wt 79.8 kg (176 lb) LMP 05/23/2022 SpO2 98% BMI 25.99 kg/m Gen: No acute distress HEENT: AT Neck: Supple Resp: EBBS. CTAB. No rhonchi, rales, or wheezing. Cardiac: Rate and rhythm regular, S1S2, No m/g/r. Vascular: Carotid 2+ bilaterally without any bruit. Radial 2+ bilaterally. Abd: S, NT, ND Extr: No ischemia, cyanosis, ulceration or intertrigo. No edema, Derm: Skin warm and well perfused Neuro: alert, awake, oriented. Studies/imaging 06/2016 CT Neck IMPRESSION: 1. No significant abnormalities in the neck. Specifically, no findings to account for history of pulsatile tinnitus. All CT scans at this facility use dose modulation, iterative reconstruction, and/or weight based dosing when appropriate to reduce radiation dose to as low as reasonably achievable. 06/2016 US Carotid IMPRESSION: Normal carotid ultrasound. Pertinent Labs Labs: CBC No results found for: HGB, HCT, PLT Renal Function No results found for: BUN, CRE, GFR Liver Function No results found for: TP, ALB, SGOT, TBILI, DBILI Lipid Profile No results found for: CHOL, HDL, LDL, TRIG HbA1c No components found for: GHBA1C, [id number] Coagulation No results found for: PTT, INR Cardiac Biomarkers No results found for: BNP, NTBNP No results found for: TROPI, TROPT Impression Ms.Melinda Armando Owens is a 46 year old female with PMH of pre menopause who presents today for tinnitus. Patient presenting today for longstanding left-sided pulsatile tinnitus. She has a completely benign physical exam. No bruits are heard on auscultation of her carotids. She did have a CTA neck and ultrasound in 2017 outside of the [facility] system. I am unable to look at these images myself. I will order a CTA here so that I may review images myself. Like to rule out FMD or any sort of compressive syndromes that may be contributing. We will also see if there is a structural cause. She has no associated hearing loss. No vertigo. No abnormal physical exam findings. She has seen audiology several times. Was told that her hearing was normal. 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 She states that whenever she is stressed she holds the majority of her pressure in her jaw and shoulders. I wonder if she would benefit from physical therapy. I will refer her to our tinnitus clinic where she can be seen by the multidisciplinary team. I have reviewed the imaging studies with and showed the findings. Recommendations CTA H/N Referral to the Tinnitus Clinic Follow up as needed. verbalized understanding and agreed with the management plan. Thank you for the opportunity to participate in the care of . Michael Phelps MD, [facility] Staff Physician Section of Vascular Medicine [facility] Department of Cardiovascular Medicine [facility] [place] [facility] documented in this encounter [facility] 05-17-2022 Miscellaneous Notes Reason for call: Patient questions who to schedule with for pulsatile tinnitus. Outcome: Patient was conferenced to [facility] App[facility] center for scheduling. Patient calling with request for physician referral: Patient referred to Otolaryngology Department. . Patient denies any new or worsening symptoms of which a provider is not aware: Yes. documented in this encounter [facility] Evaluation note Diagnosis Tinnitus, unspecified laterality- Primary [facility] Diagnosis Tinnitus, unspecified laterality- Primary [facility] Diagnosis Cervicocranial syndrome- Primary Pulsatile tinnitus, left ear [facility] Diagnosis Tinnitus, unspecified laterality [facility] Diagnosis PVC (premature ventricular contraction)- Primary Other premature beats documented in this encounter [facility]* Diagnosis Onset Date Resolution Status Other cervical disc degeneration at C4-C5 level acute Other cervical disc disorders at C5-C6 level [facility] Work Phone: Evaluation note* Diagnosis Psoriasis vulgaris (CMS/HCC)- Primary Other psoriasis Melanocytic nevus of trunk Benign neoplasm of skin of trunk, except scrotum Angioma of skin Lentigines Facial rhytids Neoplasm of unspecified behavior of bone, soft tissue, and skin [facility] Cervical pain (neck)- Primary Cervicalgia documented in this encounter [facility]InstructionsNot on filedocumented in this encounterProMercy Health St[facility] SystemInstructionsNot on filedocumented in this encounterProMercy Health St[facility] Summary Purpose Family History No Family History Records FoundNo Family History Records FoundNo Family History Records FoundNo Family History Records FoundNo Family History Records FoundNo Family History Records Found Advance Directives Advance Directive Response Recorded Date/ Time Advance Directives No February 06, 2024 4:24pm Reason for Referral Specialty Diagnoses / Procedures Referred By Contac t Referred To Contact CT IMAGING Diagnoses Tinnitus, unspecified laterality Procedures CTA NECK W IVCON CT ANGIOGRAPHY NECK W/CONTRAST/NONCONTRAST Michael Phelps MD [address] [place] [address] Ct Imaging Referral ID Status Reason Start Date Expiration Date Visits Requested Visits Authorized [id number] Pending Review Auto-Generat ed Referral 05/29/2022 06/28/2023 1 1 Specialty Diagnoses / Procedures Referred By Contac t Referred To Contact CT IMAGING Diagnoses Tinnitus, unspecified laterality Procedures CTA HEAD W IVCON CT ANGIOGRAPHY HEAD W/CONTRAST/NONCONTRAST Michael Phelps MD [address] [place] [address] Ct Imaging Referral ID Status Reason Start Date Expiration Date Visits Requested Visits Authorized [id number] Pending Review Auto-Generat ed Referral 05/29/2022 06/28/2023 1 1 Specialty Diagnoses / Procedures Referred By Contac t Referred To Contact Dentistry Diagnoses Tinnitus, unspecified laterality Procedures CONSULT TO DENTISTRY OFFICE/OUTPATIENT [facility] MDM 60-74 MINUTES Abigail Luevano, DDS [address] [place] [address] Referral ID Status Reason Start Date Expiration Date Visits Requested Visits Authorized [id number] Pending Review PCP Requested Referral 07/28/2022 07/28/2023 1 1 Specialty Diagnoses / Procedures Referred By Contac t Referred To Contact [facility] Diagnoses Tinnitus, unspecified laterality Procedures CONSULT TO PHYSICAL THERAPY PHYSICAL THERAPY EVALUATION [facility] 45 MINS Michael Phelps MD [address] [place] [address] [facility] [address] [place] [address] Referral ID Status Reason Start Date Expiration Date Visits Requested Visits Authorized [id number] Pending Review Auto-Generat ed Referral 07/28/2022 07/28/2023 1 1 Referral ID Status Reason Start Date Expiration Date V isits Requested Visits Authorized [id number] Closed Auto-Generate d Referral 05/29/2022 06/28/2023 1 1 Referral ID Status Reason Start Date Expiration Date V isits Requested Visits Authorized [id number] Closed Auto-Generate d Referral 05/29/2022 06/28/2023 1 1 Specialty Diagnoses / Procedures Referred By Benjamin kerr Referred To Contact Radiology Diagnoses Cervical pain (neck) Procedures MR cervical spine wo contrast Kaylin Cho, MARYSE [address] [place] [address] Referral ID Status Reason Start Date Expiration Date V isits Requested Visits Authorized [id number] Pending Review 01/15/2024 07/13/2024 1 1 Chief Complaint and Reason for Visit Chief Complaint disc displacement, u nspecified cervical region Reason for Visit Other cervical disc degeneration at C4-C5 level Other cervical disc disorders at C5-C6 level Additional Source Comments INFORMATION SOURCE (unrecogn ized section and content) DATE CREATED AUTHOR 12/17/2021 [facility] DATE CREATED AUTHOR AUTHOR'S ORGANIZ ATION 03/21/2022 [facility] DATE CREATED AUTHOR AUTHOR'S ORGANIZ ATION 12/06/2022 [facility] DATE CREATED AUTHOR AUTHOR'S ORGANIZ ATION 05/20/2023 [facility] DATE CREATED AUTHOR AUTHOR'S ORGANIZ ATION 05/20/2023 [facility] DATE CREATED AUTHOR AUTHOR'S ORGANIZ ATION 01/17/2024 [facility] EPIC Source Comments (unrecognize d section and content) In the event this informatio n is protected by the Federal Confidentiality of Alcohol and Drug Abuse Patient Records regulations: The Federal rules restrict any use of the information to criminally investigate or prosecute any alcohol or drug abuse patient.[facility] the event this information is protected by the Federal Confidentiality of Alcohol and Drug Abuse Patient Records regulations: The Federal rules restrict any use of the information to criminally investigate or prosecute any alcohol or drug abuse patient.[facility] the event this information is protected by the Federal Confidentiality of Alcohol and Drug Abuse Patient Records regulations: The Federal rules restrict any use of the information to criminally investigate or prosecute any alcohol or drug abuse patient.[facility] the event this information is protected by the Federal Confidentiality of Alcohol and Drug Abuse Patient Records regulations: The Federal rules restrict any use of the information to criminally investigate or prosecute any alcohol or drug abuse patient.[facility] the event this information is protected by the Federal Confidentiality of Alcohol and Drug Abuse Patient Records regulations: The Federal rules restrict any use of the information to criminally investigate or prosecute any alcohol or drug abuse patient.[facility] the event this information is protected by the Federal Confidentiality of Alcohol and Drug Abuse Patient Records regulations: The Federal rules restrict any use of the information to criminally investigate or prosecute any alcohol or drug abuse patient.[facility] the event this information is protected by the Federal Confidentiality of Alcohol and Drug Abuse Patient Records regulations: The Federal rules restrict any use of the information to criminally investigate or prosecute any alcohol or drug abuse patient.[facility] Reason for Visit (unrecogniz ed section and content) Reason Comments Referral Request Reason Comments Consult tinnitus Reason Comments PT Eval PT Discharge Specialty Diagnoses / Procedures Referred By Benjamin t Referred To Contact [facility] Diagnoses Fecal smearing Procedures CONSULT TO PHYSICAL THERAPY PHYSICAL THERAPY EVALUATION HIGH COMPLEX 45 MINS Konrad Jensen MD [address] [place] [address] [facility] [address] [address] Referral ID Status Reason Start Date Expiration Date V isits Requested Visits Authorized [id number] Closed Auto-Generated Referral Patient Cleared - True Self-Pay required payment collected 10/20/2022 10/20/2023 1 1 Specialty Diagnoses / Procedures Referred By Contac t Referred To Contact CT IMAGING Diagnoses Tinnitus, unspecified laterality Procedures CTA NECK W IVCON CT ANGIOGRAPHY NECK W/CONTRAST/NONCONTRAST Michael Phelps MD [address] [place] [address] Ct Imaging Referral ID Status Reason Start Date Expiration Date V isits Requested Visits Authorized [id number] Closed Auto-Generate d Referral 05/29/2022 06/28/2023 1 1 Reason Comments Follow-up 3 mo f/u-l/s MS-labs before appt- echo and stress to be completed before-sched appt wpt Reason Comments Follow-up Skin Check Reason Comments Arm Pain Care Teams (unrecognized sec tion and content) 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 Relationship Specialty Start Date End Date Bert Ray MD [address] [place] [phone] PCP - General Family Medicine 12/20/18 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 Relationship Specialty Start Date End Date Kiet Lenz [address] [place] [phone] PCP - General Family Medicine 05/29/22 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 Relationship Specialty Start Date End Date Kiet Lenz [address] [place] [phone] PCP - General Family Medicine 05/29/22 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 Relationship Specialty Start Date End Date Kiet Lenz [address] [place] [phone] PCP - General Family Medicine 05/29/22 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 Relationship Specialty Start Date End Date Kiet Lenz [address] [place] [phone] PCP - General Family Medicine 05/29/22 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 Relationship Specialty Start Date End Date Kiet Lenz [address] [place] [phone] PCP - General Family Medicine 05/29/22 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 Relationship Specialty Start Date End Date Kiet Lenz [address] [place] [phone] PCP - General Family Medicine 05/29/22 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 Relationship Specialty Start Date End Date Kiet Lenz MD [address] [facility] [address] PCP - General Family Medicine 12/29/19 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 Relationship Specialty Start Date End Date Kiet Lenz MD [address] [facility] [address] PCP - General Family Medicine 12/29/19 Team Status: Active Member Role Status Dates Kiet Lenz MD Primary Care Provider Active Team Status: Inactive Member Role Status Dates Kiet Lenz MD Primary Care Provider Active S tart: February 14, 2024 End: February 14, 2024 Juan Manuel Garcia MD Attending Provider Active Star t: February 14, 2024 End: February 14, 2024 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 Relationship Specialty Start Date End Date Shaikh Slaughter MD [address] [place] [phone] PCP - General Internal Medicine 09/12/23 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 Relationship Specialty Start Date End Date Shaikh Slaughter MD [address] [place] [phone] PCP - General Internal Medicine 09/12/23 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 Relationship Specialty Start Date End Date Shaikh Slaughter MD [address] [place] [phone] PCP - General Internal Medicine 09/12/23 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 Relationship Specialty Start Date End Date Kiet Lenz MD [address] [place] [phone] PCP - General Family Medicine 01/15/24 Kaylin Cho NP [address] [place] [phone] Nurse Practitioner Family Medicine 01/15/24 Goals (unrecognized section and content) Goals may be documented in a n alternate section FOR RECORDS PERTAINING TO PATIENTS WHO ARE OR HAVE BEEN ENROLLED IN A CHEMICAL DEPENDENCY/SUBSTANCEABUSE PROGRAM, SOME INFORMATION MAY BE OMITTED. This clinical summary was aggregated from multiple sources. Caution should be exercised in using it in the provision of clinical care. This summary normalizes information from multiple sources, and as a consequence, information in this document may materially change the coding, format and clinical context of patient data. In addition, data may be omitted in some cases. CLINICAL DECISIONS SHOULD BE BASED ON THE PRIMARY CLINICAL RECORDS. [employer] provides no warranty or guarantee of the accuracy or completeness of information in this document.
[2024-06-16 09:01] LABS: Basophils Absolute Auto 0.1 10^3/uL (0.0-0.1); Basophils Percent Auto 1.2 % (0.2-2.0); Eosinophils Absolute Auto 0.1 10^3/uL (0.0-0.7); Eosinophils Percent Auto 2.2 % (0.9-7.0); Hemoglobin 13.2 g/dL (12.0-16.0); Immature Granulocytes Abs Auto 0.01 10^3/uL (0.00-0.03); Immature Granulocytes Pct Auto 0.2 % (0.0-0.5); Lymphocytes Absolute Auto 1.5 10^3/uL (1.2-3.8); Lymphocytes Percent Auto 25.3 % (20.5-60.0); Mean Corpuscular HGB Conc 33.8 g/dL (29.9-35.2); Mean Corpuscular Hemoglobin 29.7 pg (26.7-34.0); Mean Corpuscular Volume 87.8 fL (81.0-99.0); Mean Platelet Volume 12.3 fL (9.5-13.5); Monocytes Absolute Auto 0.4 10^3/uL (0.3-0.8); Monocytes Percent Auto 6.8 % (1.7-12.0); Neutrophils Absolute Auto 3.8 10^3/uL (1.4-6.5); Neutrophils Percent Auto 64.3 % (43.0-75.0); Platelet Count 198 10^3/uL (150-450); Red Blood Count 4.44 10^6/uL (4.20-5.40); Red Cell Distribution Width 11.8 % (11.0-15.0); White Blood Count 5.9 10^3/uL (4.0-11.0)
[2024-06-16 09:44] LABS: Glucose Fasting 94 mg/dL (<95); TSH W/ REFLEX FT4 1.798 uIU/mL (0.358-3.740)
[2024-06-16 09:52] LABS: HCG Quantitative <1 mIU/mL
[2024-06-17 08:15] LABS: FSH 4.9 mIU/mL (.); Luteinizing Hormone(LH) 2.6 mIU/mL (.); Progesterone 14.7 ng/mL (.); Prolactin 17.2 ng/mL (4.8-33.4)
[2024-06-17 10:07] LABS: Sex Horm Binding Glob, Serum 60.5 nmol/L (24.6-122.0)
[2024-06-19 14:11] LABS: Estrone, Serum 70 pg/mL (.)
== END 2024-06-16 08:25 | disposition home or self-care (01) ==
LOC: LAB 08:28
PROVIDERS: PCP Family Medicine
DX: N93.9 Abnormal uterine and vaginal bleeding, unspecified (principal); N95.1 Menopausal and female climacteric states
CPT/HCPCS: 36415; 82306; 82533; 82627; 82670; 82679; 82728; 82947; 83001; 83002; 83498; 83540; 84144; 84146; 84270; 84402; 84403; 84443; 84702; 85025